=== PATIENT | male | born 1975 | race Two or more races ===

== ENCOUNTER 2020-06-16 12:56 | Emergency (ER) | payer SELFPAY ==
[~2020-06-16] VITALS: Ht 175.3 cm; Wt 86.5 kg
[2020-06-16] MEDS ORDERED: KETOROLAC 15MG/ML VIAL IV ONE (13:30)
[2020-06-16] MEDS ORDERED: ONDANSETRON HCL 4MG/2ML INJ IV ONE (13:30)
[2020-06-16] MEDS ORDERED: SODIUM CHLORIDE 0.9% 1,000 ML IV ONE (13:30)
[2020-06-16 15:39] VITALS: BP 119/86
[2020-06-16] MEDS ORDERED: DEXAMETHASONE 4MG TABLET PO ONE (15:45)
[2020-06-16] MEDS ORDERED: AZITHROMYCIN 500 MG TABLET PO ONE (15:45)
== END 2020-06-16 17:17 | disposition home or self-care (01) ==
LOC: ER 13:18
DX: U07.1 COVID-19 (principal); J12.89 Other viral pneumonia
CPT/HCPCS: 71045; 87635; 99283; J1885; J7030; J8540